=== PATIENT | female | born 1960 | race Native Hawaiian/Other Pacific Islander ===

== ENCOUNTER 2018-09-17 08:55 | Outpatient (CLI) | payer OTHER | END 2018-09-17 08:56 | disposition home or self-care (01) | LOC: C.LAB 08:55 | DX: E11.9 Type 2 diabetes mellitus without complications (principal); E78.00 Pure hypercholesterolemia, unspecified; I10 Essential (primary) hypertension; Z68.28 Body mass index [BMI] 28.0-28.9, adult ==

== ENCOUNTER 2018-12-24 10:40 | Outpatient (CLI) | payer OTHER | END 2018-12-24 10:41 | disposition home or self-care (01) | LOC: C.LAB 10:40 | DX: C50.911 Malignant neoplasm of unspecified site of right female breast (principal) ==